=== PATIENT | female | born 1965 | race Caucasian/White ===

== ENCOUNTER → 2016-05-11 | Outpatient (CLI) | payer OTHER ==
[~2016-05-11] MED LIST: CIPRO500 MG PO; CLINDAMYCIN HC300 MG PO; IBUPROFEN800 MG PO; LOVENOX SY40 MG/0.4 SQ; MS CONTIN15 MG PO; NEURONTIN 100100 MG PO; NORVASC 5 MG TAB5 MG PO; PERCOCET 10-321 EACH PO; PHENERGAN 25 MG25 M1 PO; PROTONIX40 M1 PO; PROTONIX40 MG PO; PROVENTIL HFA 61 INH INH; PROZAC20 MG PO; TYLENOL 325MG325 MG PO; VITAMIN C 500500 MG PO; VYVANSE10 MG PO; ZITHROMAX TRI-500 MG PO; ZYRTEC10 MG PO
== END ==
LOC: KOH-I 12:51
DX: I82.502 Chronic embolism and thrombosis of unspecified deep veins of left lower extremity (principal)
CPT/HCPCS: 93970

== ENCOUNTER → 2016-05-27 | Outpatient (CLI) | payer OTHER | LOC: KOH-I 11:30 | DX: S90.31XA Contusion of right foot, initial encounter (principal); Z98.890 Other specified postprocedural states | CPT/HCPCS: 73700 ==